=== PATIENT | female | born 1940 | race Caucasian/White ===

== ENCOUNTER → 2016-08-25 | Outpatient (CLI) | payer OTHER ==
[~2016-08-25] MED LIST: ASCA500 PO; CITA20TA9 PO; CLTP PO; HYDR12.55 PO; LEVO75TA5 PO; LISI-725 PO; TOPI50TA24 PO; VALA500T60 PO; [UNRECOGNIZED DRUG - OTHER] PO; acidophilus; biotin
--- NOTE | 2016-08-25 10:43 | DIAGNOSTIC IMAGING REPORT ---
PET/CT HISTORY: Pulmonary nodules LYMPHOMA TECHNIQUE: PET/CT was performed from the base of the skull through the pelvis following the intravenous administration of mCi of F18-FDG. Non-contrast CT imaging was performed over the same range without breath-hold for attenuation correction of PET images and anatomic correlation, but not for primary interpretation as it is not of standard diagnostic quality. CT DOSE: COMPARISON: CT chest 10/05/2014. CT chest 09/14/2015 FINDINGS: HEAD AND NECK: There is no FDG-avid disease or significant lymphadenopathy in the imaged portions of the head and the neck. CHEST: There is no FDG-avid disease in the chest. There is no axillary, mediastinal, or hilar lymphadenopathy. There is no pleural or pericardial effusion. There is no air-space disease or suspicious lung nodule. Stable postoperative changes right hemithorax ABDOMEN/PELVIS: Below the diaphragm, tracer is distributed physiologically in the gastrointestinal and genitourinary tracts. There is no significant lymphadenopathy and no FDG-avid disease. MUSCULOSKELETAL: There is no FDG-avid or destructive bone lesion. IMPRESSION: There is no definite evidence of recurrent FDG-avid disease. Postoperative change of the chest showing no abnormal activity characteristics. Electronically signed by: Edinson Briceno M.D. 08/25/2016 10:41 AM Dictated Date/Time: 08/25/2016 10:36 AM
== END | disposition home or self-care (01) ==
LOC: C.PET 07:49
PROVIDERS: ATTEND Internal Medicine Medical Oncology
DX: C85.90 Non-Hodgkin lymphoma, unspecified, unspecified site (principal)

== ENCOUNTER → 2017-10-05 | Outpatient (CLI) | payer OTHER ==
--- NOTE | 2017-10-05 14:45 | DIAGNOSTIC IMAGING REPORT ---
PET/CT CLINICAL HISTORY: Non-Hodgkin's lymphoma. Breast cancer. TECHNIQUE: A PET/CT was performed from the skull base through the upper thighs following intravenous injection of 10.15 mCi of F 18 FDG IV. The injection was performed at 10:07 AM on October 05, 2017 and imaging began at 11:12 AM on October 05, 2017. Unenhanced CT was performed for attenuation correction purposes and anatomic localization. COMPARISON STUDY: PET/CT August 25, 2016. FINDINGS: Head and neck: No cervical lymphadenopathy is present. There is no abnormal FDG uptake within the neck. Chest: Postoperative findings within the right middle lobe are noted. These are unchanged since prior exam. Lungs are suboptimally assessed due to respiratory motion. There is a possible 9 mm groundglass opacity within the right upper lobe shown on image 88. This is below size threshold for evaluation by PET imaging. Calcified granuloma within left lower lobe is noted. Heart is moderately enlarged. There is no pericardial effusion. Abdomen and Pelvis: No suspicious FDG uptake is identified within the abdomen or the pelvis. No abdominal or pelvic lymphadenopathy is present. The gallbladder is surgically absent. Mild biliary ductal dilatation is unchanged. Postoperative findings within the liver are noted. A 1.3 cm lesion arising from the upper pole of the left kidney measures just above water attenuation. This has no FDG uptake. Musculoskeletal: No suspicious skeletal uptake is identified. Uptake within the cervical spine as well as trace into the left shoulder is likely related to muscular uptake or degenerative in etiology. IMPRESSION: 1. No FDG avid lymphadenopathy identified. 2. Possible 9 mm groundglass opacities within the right upper lobe. This is below size threshold for evaluation by PET imaging. A follow-up chest CT in 6 months could be obtained. 3. 1.3 cm lesion arising from the upper pole of the left kidney. This measures just above water attenuation. This likely reflects a cyst but should be assessed on subsequent studies to ensure stability. Electronically signed by: Amrik Amaya M.D. 10/05/2017 2:43 PM Dictated Date/Time: 10/05/2017 2:05 PM
== END | disposition home or self-care (01) ==
LOC: C.PET 09:15
PROVIDERS: ATTEND Internal Medicine Medical Oncology
DX: C85.90 Non-Hodgkin lymphoma, unspecified, unspecified site (principal); N28.9 Disorder of kidney and ureter, unspecified